=== PATIENT | female | born 1985 | race Caucasian/White ===

== ENCOUNTER 2016-07-30 19:33 | Observation (INO) | payer OTHER ==
[~2016-07-30] VITALS: Ht 162.6 cm; Wt 61.9 kg
[~2016-07-30 19:33] MED LIST: METHADONE10 MG PO; Methadone HCl PO; Motrin PO; NATALCARE RX1 TABLET PO; ROXICODONE5 MG PO
[2016-07-30 23:12] LABS: HEMATOCRIT 36.7 % (36.0-46.0); MCH 29.4 PG (29.0-34.0); MCHC 33.5 G/DL (30.0-36.0); MCV 87.6 FL (83-99); MEAN PLAT.VOLUME 10.5 uM^3 (9.5-12.4); PLATELET COUNT 219 K/uL (156-360); RBC DIS.WIDTH-CV 12.9 % (11.8-14.6); RBC DIS.WIDTH-SD 40.3 % (39-53); RED BLOOD COUNT 4.19 M/uL (3.80-5.20); WHITE BLOOD COUNT 7.3 K/uL (4.1-10.2)
[2016-07-30 23:22] LABS: CHLORIDE 104 mEq/L (99-109); POTASSIUM 2.9 mEq/L (3.7-5.4); SODIUM 138 mEq/L (136-147)
[2016-07-30 23:23] LABS: GLUCOSE 121 mg/dL (70-99)
[2016-07-30 23:25] LABS: ANION GAP 11 MEQ/L (2-14)
[2016-07-30 23:27] LABS: GFR ESTIMATE (CALCULATED) > 59 mL/min/
[2016-07-30 23:28] LABS: UREA NITROGEN (BUN) 11 mg/dL (9-23)
[2016-07-31] MEDS ORDERED: DILAUDID4 MG PO (01:19)
[2016-07-31] MEDS ORDERED: GABAPENTIN100 MG PO (01:20)
[2016-07-31 16:41] VITALS: BP 128/80
[2016-07-31 20:00] VITALS: BP 106/63
[2016-08-01 01:00] VITALS: BP 103/62
[2016-08-01 04:47] VITALS: BP 105/59
[2016-08-01 08:16] VITALS: BP 116/59
[2016-08-01 09:23] LABS: EOSINOPHIL (%) 8.4 % (0-5); EOSINOPHIL COUNT 0.3 K/uL (0-0.3); HEMATOCRIT 34.8 % (36.0-46.0); IMMATURE GRANULOCYTE (%) 0.3 % (0.0-0.7); LYMPHOCYTE COUNT 1.6 K/uL (1.0-2.8); MCH 29.5 PG (29.0-34.0); MCHC 32.5 G/DL (30.0-36.0); MCV 90.9 FL (83-99); MEAN PLAT.VOLUME 10.6 uM^3 (9.5-12.4); MONOCYTE (%) 12.9 % (3-12); MONOCYTE COUNT 0.4 K/uL (0-0.8); PLATELET COUNT 163 K/uL (156-360); RBC DIS.WIDTH-CV 13.3 % (11.8-14.6); RBC DIS.WIDTH-SD 43.8 % (39-53); RED BLOOD COUNT 3.83 M/uL (3.80-5.20)
[2016-08-01 09:24] LABS: WHITE BLOOD COUNT 3.3 K/uL (4.1-10.2)
[2016-08-01 09:40] LABS: ANION GAP 6 MEQ/L (2-14); CHLORIDE 106 MEQ/L (99-109); GFR ESTIMATE (CALCULATED) > 59 mL/min/; GLUCOSE 114 mg/dL (70-99); SAMPLE HEMOLYSIS CHECK 0; SAMPLE ICTERIC CHECK 0; SAMPLE LIPEMIA CHECK 0; SODIUM 140 MEQ/L (136-147); UREA NITROGEN (BUN) 7 mg/dL (9-23)
[2016-08-01 09:44] LABS: POTASSIUM 4.1 MEQ/L (3.7-5.4)
[2016-08-01 12:28] VITALS: BP 80/43
[2016-08-01 12:50] VITALS: BP 95/52
[2016-08-01] MEDS ORDERED: CLEOCIN300 MG PO (13:41)
[2016-08-01 15:59] VITALS: BP 102/59
== END 2016-08-01 17:42 | disposition home or self-care (01) ==
LOC: EME 19:33 → EDOF 07-31 02:37 → 5WEST 07-31 16:18
PROVIDERS: Emergency Medicine; Hospitalist
DX: L03.116 Cellulitis of left lower limb (principal); Z87.898 Personal history of other specified conditions; G89.29 Other chronic pain; Z79.891 Long term (current) use of opiate analgesic; F17.200 Nicotine dependence, unspecified, uncomplicated; M79.672 Pain in left foot; M79.89 Other specified soft tissue disorders; R50.9 Fever, unspecified; Z88.2 Allergy status to sulfonamides
CPT/HCPCS: 73630; 73700; 80048; 80202; 83605; 85025; 85027; 87040; 93971; 99281; 99285; G0378; J1650; J2543; J3370; J7030

== ENCOUNTER 2017-12-08 18:04 | Emergency (ER) | payer OTHER ==
[~2017-12-08] VITALS: Ht 165.1 cm; Wt 66.4 kg
[~2017-12-08 18:04] MED LIST changes: +CLEOCIN300 MG PO; +DILAUDID4 MG PO; +GABAPENTIN100 MG PO
[2017-12-08] MEDS ORDERED: FLEXERIL10 MG PO (19:20)
[2017-12-08] MEDS ORDERED: NAPROSYN375 MG PO (19:20)
[2017-12-08 19:25] VITALS: BP 115/78
== END 2017-12-08 19:26 | disposition home or self-care (01) ==
LOC: EME 18:04
DX: S39.012A Strain of muscle, fascia and tendon of lower back, initial encounter (principal); S16.1XXA Strain of muscle, fascia and tendon at neck level, initial encounter; V49.40XA Driver injured in collision with unspecified motor vehicles in traffic accident, initial encounter; Y92.410 Unspecified street and highway as the place of occurrence of the external cause; Z88.2 Allergy status to sulfonamides
CPT/HCPCS: 99281; 99283